=== PATIENT | female | born 1955 | race Hispanic/Latino ===

== ENCOUNTER → 2018-08-13 | Outpatient (CLI) | payer OTHER ==
--- NOTE | 2018-08-13 13:26 | Diagnostic Imaging Report ---
EXAM: Renal Ultrasound INDICATION: ^[id number] ^[id number] ^CYST OF KIDNEY COMPARISON: None TECHNIQUE: Transverse and longitudinal images of the kidneys and bladder were obtained. FINDINGS: Right Kidney: Absent Left Kidney: Length: 11.4 cm Appearance: Normal echogenicity. Collecting system: No hydronephrosis Stones: None Cyst/Mass: 2.6 x 2.3 x 2.0 cm simple cyst in the interpolar region Bladder: Normal IMPRESSION: Simple left renal cyst measuring up to 2.6 cm. No hydronephrosis or suspicious masses. Signed by: Dr. Pebbles Hilliard M.D. on 08/13/2018 1:22 PM
== END ==
LOC: US 12:34
PROVIDERS: ATTEND Urology
DX: N28.1 Cyst of kidney, acquired (principal)
CPT/HCPCS: 76770